=== PATIENT | female | born 1980 | race Caucasian/White ===

== ENCOUNTER 2018-08-07 15:27 | Emergency (ER) | payer BC ==
[2018-08-07 15:41] VITALS: BP 120/85; PULSE 91; RESP 16; TEMP 97.9
[2018-08-07] MEDS ORDERED: KETOROLAC 30 MG/ML 1 ML VIAL IM STA (16:04)
--- NOTE | 2018-08-07 17:00 | ED ---
General Adult HPI - General Chief complaint: Extremity Problem,Nontraumatic Stated complaint: Knee pain Time Seen by Provider: 08/07/18 15:41 Source: patient Mode of arrival: wheelchair Limitations: no limitations - History of Present Illness Initial comments: 37-year-old female who denies past medical history presents today for chief complaint of bilateral knee pain. Patient states that last night she woke up with bilateral knee pain. Patient denies any trauma or injury to the knees. Patient denies any warmth, redness, erythema or swelling of the knees. She presented to her primary care provider this morning were x-rays, laboratory studies were obtained. Patient was given IM steroids as well as a prescription for outpatient oral steroids. They discussed that findings concerning for a rheumatoid disorder. Patient was sent home, she does have a home prescription for [place] which she was instructed to take extracted. Patient states that the pain continued which was home and presented for second opinion at the emergency department. Patient states that they called her lab results, stating that her hemoglobin was mildly decreased, however she states she has chronic anemia. I spoke directly with Del[facility] at [facility] around 4pm wed discussed imaging and laboratory findings there were no significant abnormalities no findings concerning for acute dislocation or fracture. No lytic lesions. Patient denies any associated symptoms including numbness, tingling, paresthesias or coolness or pallor of the extremity, fever, chills, night sweats, involvement of any other joints, eye pain, eye redness, dysuria, urgency or frequency patient denies any recent gonococcal or chlamydial infection or vaginal discharge patient denies any chest pain, rashes, lesions, shorts of breath. She states she felt fine she has not noted any concerning symptoms prior to onset of b/l knee pain. Patient denies any calf pain, masses or calf, pain with dorsiflexion of the foot, warm or red areas of the cast. Upon arrival pt VS within acceptable limits, pt is able to weight bear and ambulate, with discomfort. No noted distress. - Related Data Home Medications Medication Instructions Recorded Confirmed Methylphenidate HCl [Ritalin] 20 mg PO TID 11/01/14 08/11/16 ARIPiprazole [Abilify] 20 mg PO DAILY 08/11/16 08/11/16 Escitalopram [Lexapro] 20 mg PO DAILY 08/11/16 08/11/16 Previous Rx's Medication Instructions Recorded Lisinopril [Zestril] 10 mg PO DAILY #14 tab 11/01/14 Ibuprofen 800 mg PO Q8H PRN 7 Days #21 tablet 08/07/18 Allergies Allergy/AdvReac Type Severity Reaction Status Date / Time dichloralphenazone Allergy Rash/Hives Verified 08/07/18 15:41 [From Midrin] isometheptene mucate Allergy Rash/Hives Verified 08/07/18 15:41 [From Midrin] Review of Systems ROS Statement: Those systems with pertinent positive or pertinent negative responses have been documented in the HPI. ROS Other: All systems not noted in ROS Statement are negative. Constitutional: Denies: fever, chills, night sweats Eyes: Denies: eye pain, vision change ENT: Denies: ear pain, throat pain, hearing loss Respiratory: Denies: wheezes, hemoptysis, stridor Cardiovascular: Denies: chest pain, palpitations, dyspnea on exertion Endocrine: Denies: fatigue Gastrointestinal: Denies: abdominal pain, nausea, vomiting, diarrhea, constipation, hematemesis Genitourinary: Denies: urgency, dysuria, frequency, hematuria, discharge Musculoskeletal: Reports: arthralgia (Bilateral knee pain times one day). Denies: back pain Skin: Denies: rash, lesions, change in color Neurological: Denies: headache, weakness, numbness, paresthesias, confusion, abnormal gait Past Medical History Past Medical History: No Reported History History of Any Multi-Drug Resistant Organisms: None Reported Past Surgical History: Appendectomy Past Psychological History: ADD/ADHD, Anxiety, Depression Smoking Status: Current every day smoker Past Alcohol Use History: None Reported Past Drug Use History: None Reported General Exam - General Exam Comments Initial Comments: General: The patient is awake and alert, in no distress, and does not appear acutely ill. Eye: Pupils are equal, round and reactive to light, extra-ocular movements are intact. No nystagmus. There is normal conjunctiva bilaterally. No signs of icterus. Ears, nose, mouth and throat: There are moist mucous membranes and no oral lesions. Cardiovascular: There is a regular rate and rhythm. No murmur, rub or gallop is appreciated. Respiratory: Lungs are clear to auscultation, respirations are non-labored, breath sounds are equal. No wheezes, stridor, rales, or rhonchi. Musculoskeletal: No noted edema, warmth or tenderness to palpation of the knees bilaterally there is no obvious defects or palpable step-offs. Patient is able to fully range at the knees bilaterally, pt does complain of some discomfort with ROM. No pain to palpation of the deep venous system of the lower extremities equally bilaterally with the posterior fossa of the knees. Strength 5/5 of the lower extremities equally bilaterally. Sensation intact of the lower extremities including feet equally bilaterally. DP pulses equal bilaterally 2+. Pt is able to weight bear, admits to discomfort. Neurological: A&O x 3. CN II-XII intact, There are no obvious motor or sensory deficits. Coordination appears grossly intact. Speech is normal. Skin: Skin is warm and dry and no rashes or lesions are noted. Psychiatric: Cooperative, appropriate mood & affect, normal judgment. Limitations: no limitations Course Vital Signs 08/07/18 15:37 Temperature 97.9 F Pulse Rate 91 Respiratory 16 Rate Blood Pressure 120/85 O2 Sat by Pulse 97 Oximetry Medical Decision Making - Medical Decision Making At this time given history of recent lab draw, negative imaging administration of steroids I feel no further testing is warranted at this time. Patient agrees and defers repeat imaging/laboratory studies at this time. There is no history of trauma, or physical exam findings concerning for septic joint. There are no physical exam findings or history concerning for deep venous thrombosis. I agree with primary physician's opinion of possible rheumatological cause of bilateral knee pain. Patient was given IM Toradol for pain management. I instructed patient to continue his steroids as directed. In addition I recommended rheumatology follow-up as well as primary care follow- up in 1-2 days. Patient verbalized understanding. Patient was instructed to continue [place] for pain management as needed as well as take ibuprofen 800 for inflammatory purposes. She is agreeable with plan. Case discussed in detail with Dr. Lama who agreed with impression and plan. Pt was discharged in stable condition with f/u as indicated. Disposition Clinical Impression: Bilateral knee pain Disposition: HOME SELF-CARE Condition: Good Instructions: Knee Pain (ED) Additional Instructions: Please use medication as discussed. Please follow-up with family doctor in the next 2 days. The stop with rheumatology in the next 2-3 days. Please return to emergency room if the symptoms increase or worsen or for any other concerns. Prescriptions: Ibuprofen 800 mg PO Q8H PRN 7 Days #21 tablet PRN Reason: Pain Is patient prescribed a controlled substance at d/c from ED?: No Referrals: Tal Villar MD [Primary Care Provider] - 1-2 days Cyndee Hubbard MD [STAFF PHYSICIAN] - 1-2 days Time of Disposition: 16:58
== END 2018-08-07 17:12 | disposition home or self-care (01) ==
LOC: EC 15:27
DX: M25.561 Pain in right knee (principal); M25.562 Pain in left knee; F90.9 Attention-deficit hyperactivity disorder, unspecified type; F41.9 Anxiety disorder, unspecified; F32.9 Major depressive disorder, single episode, unspecified; Z79.899 Other long term (current) drug therapy; Z88.6 Allergy status to analgesic agent
CPT/HCPCS: 99283; 96372; J1885

== ENCOUNTER → 2020-11-06 | Outpatient (CLI) | payer BC ==
[2020-11-06 16:49] LABS: Basophils % (A) 1 %; Eosinophils % (A) 0 %; HCT 35.9 % (34.0-46.0); HGB 11.6 gm/dL (11.4-16.0); Lymphocytes # (A) 2.2 k/uL (1.0-4.8); Lymphocytes % (A) 31 %; MCH 26.5 pg (25.0-35.0); MCHC 32.3 g/dL (31.0-37.0); MCV 82.2 fL (80.0-100.0); Mean Platelet Volume 6.9; Monocytes # (A) 0.6 k/uL (0-1.0); Monocytes % (A) 9 %; Neutrophils # (A) 4.2 k/uL (1.3-7.7); Neutrophils % (A) 58 %; Platelet Count 468 k/uL (150-450); RBC 4.37 m/uL (3.80-5.40); RDW 15.6 % (11.5-15.5); WBC 7.1 k/uL (3.8-10.6)
== END | disposition home or self-care (01) ==
LOC: LABPAT 15:08
PROVIDERS: ATTEND Obstetrics & Gynecology
DX: Z01.818 Encounter for other preprocedural examination (principal); N93.8 Other specified abnormal uterine and vaginal bleeding; I10 Essential (primary) hypertension
CPT/HCPCS: 36415; 85025; 93005

== ENCOUNTER 2020-11-11 06:14 | Day surgery (SDC) | payer BC ==
[2020-11-07 10:11] VITALS: BMI 20.2
[~2020-11-11 06:14] MED LIST: DEXAMETHASONE SOD PHOSPHATE 4 MG/ML 1 ML VIAL IV ONE; LACTATED RINGERS 1,000 ML IV SCH; MIDAZOLAM 2 MG/2 ML VIAL IV PRN; ONDANSETRON 4 MG/2 ML VIAL IVP ONE; Pre Op ABX Message 1 EACH MISC MISCELLANE ONE; SCOPOLAMINE 1.5MG/72HR PATCH TRANSDERM ONE
[2020-11-11] MEDS ORDERED: LIDOCAINE 1% (10MG/ML) FOR IV START INTRADERMA ONE (06:51)
[2020-11-11] MEDS ORDERED: HYDROmorphone 0.5 MG/0.5 ML SYRINGE IVP PRN (07:00)
[2020-11-11] MEDS ORDERED: PROPOFOL 10 MG/ML 20 ML VIAL IV ONE (07:22)
[2020-11-11] MEDS ORDERED: fentaNYL (PF) 50 MCG/ML 2 ML AMP ONE (07:22)
[2020-11-11] MEDS ORDERED: KETOROLAC 15 MG/ML 1 ML VIAL ONE (07:22)
[2020-11-11] MEDS ORDERED: LIDOCAINE 1% INJ 10MG/ML (20 ML MDV) ONE (07:22)
[2020-11-11] MEDS ORDERED: MIDAZOLAM 2 MG/2 ML VIAL ONE (07:22)
[2020-11-11] MEDS ORDERED: LIDOCAINE 1%-EPI 1:100,000 20 ML VIAL SUBMUCOSAL ONE (07:44)
--- NOTE | 2020-11-11 08:09 | P.OP ---
Date of Procedure: 11/11/20 Preoperative Diagnosis: Menometrorrhagia Postoperative Diagnosis: Same Procedure(s) Performed: Diagnostic hysteroscopy and NovaSure endometrial ablation Anesthesia: MAC Surgeon: Madelin Garcia Estimated Blood Loss (ml): 5 IV fluids (ml): 400 Urine output (ml): 50 Pathology: none sent Condition: stable Disposition: PACU Indications for Procedure: History of menometrorrhagia. Benign endometrial biopsy. Possible endometrial p olyp on transvaginal ultrasound. Operative Findings: Intrauterine cavity without any evidence of endometrial polyp or other intracavitary lesions. Bilateral tubal ostia visualized. Description of Procedure: After the patient was met in the preoperative holding area and all questions were answered, she was taken to the operating room where anesthetic was administered without incident. She was then positioned, prepped and draped in the dorsal high lithotomy position. O was drained for approximately 50 mL of clear urine. Exam under anesthetic was performed and the uterus was small, freely mobile and in the midline. Speculum was placed in the vagina and the cervix was grasped anteriorly with a single-tooth tenaculum. Paracervical block with lidocaine plus epinephrine was placed in the usual fashion. The uterus was sounded to 10 cm. The cervix was then sequentially dilated using Hegar dilators to allow for passage of the diagnostic hysteroscope. The hysteroscope was introduced and a fluffy, benign. Endometrium was noted. There is no evidence of lesion consistent with polyp. The hysteroscope was then removed and the cervix was further dilated to allow for passage of the NovaSure ablation device. The device was inserted with a cavity length of 5.5 cm, width of 4.8 cm and the cavity assessment test was passed without alarm. The device was enabled for a treatment cycle of 96 seconds at a power of 145 W. Following completion of the treatment cycle the device was removed. The hysteroscope was reintroduced and complete desiccation of the endometrium was appreciated. All instruments were then removed from the uterus and cervix. The cervix was observed and no active bleeding was noted. Speculum was removed from the vagina. The patient was awoken from anesthetic without incident and transported to recovery area in stable condition. All counts reported to me as correct by the operating room staff at the end of the procedure.
[2020-11-11 08:18] VITALS: TEMP 98.8
[2020-11-11 08:30] VITALS: RESP 16
[2020-11-11 10:16] VITALS: BP 122/78; PULSE 67
== END 2020-11-11 10:46 | disposition home or self-care (01) ==
LOC: OR 06:14
PROVIDERS: ATTEND Obstetrics & Gynecology
DX: N92.1 Excessive and frequent menstruation with irregular cycle (principal); I10 Essential (primary) hypertension; F90.9 Attention-deficit hyperactivity disorder, unspecified type; F41.9 Anxiety disorder, unspecified; D64.9 Anemia, unspecified; F32.9 Major depressive disorder, single episode, unspecified; F17.210 Nicotine dependence, cigarettes, uncomplicated; Z87.442 Personal history of urinary calculi; Z98.818 Other dental procedure status; Z98.890 Other specified postprocedural states; Z79.899 Other long term (current) drug therapy; Z82.49 Family history of ischemic heart disease and other diseases of the circulatory system; Z82.0 Family history of epilepsy and other diseases of the nervous system; Z88.5 Allergy status to narcotic agent
CPT/HCPCS: 58563; 81025; J2250; J1100; J2405; J2001; J3010; J1885; J2704; J1170

== ENCOUNTER → 2025-03-08 | Outpatient (CLI) | payer BC ==
--- NOTE | 2025-03-11 07:56 | MM ---
Reason for Exam: Screening (asymptomatic). Patient History: Menarche at age 12. First Full-Term at age 22. Premenopausal. Risk Values: Soledad 5 year model risk: 0.7%. NCI Lifetime model risk: 9.6%. Tissue Density: The breasts are heterogeneously dense, which may obscure small masses. Findings: Analyzed By CAD. A few benign-appearing axillary lymph nodes are seen bilaterally. There is no suspicious group of microcalcifications or suspicious mass in either breast. Overall Assessment: Negative, BI-RAD 1 Management: Screening Mammogram of both breasts in 1 year. . Patient should continue monthly self-breast exams. A clinical breast exam by your physician is recommended on an annual basis. This exam should not preclude additional follow-up of suspicious palpable abnormalities. Note on Soledad scores and lifetime risk: 1. A Soledad score greater than 3% is considered moderate risk. If this is the case, consider specialist referral to assess eligibility for a risk reducing agent. 2. If overall lifetime risk for the development of breast cancer is 20% or higher, the patient may qualify for future screening with alternating mammogram and breast MRI. [facility], , 03/11/2025 7:53 AM. Electronically signed and approved by: Philip Lance M.D.
== END | disposition home or self-care (01) ==
LOC: RADMAMWWP 14:39
PROVIDERS: ATTEND Family Medicine
DX: Z12.31 Encounter for screening mammogram for malignant neoplasm of breast (principal); R92.333 Mammographic heterogeneous density, bilateral breasts
CPT/HCPCS: 77063; 77067